=== PATIENT | male | born 1975 ===

== ENCOUNTER 2020-09-11 08:58 | Outpatient (CLI) | payer OTHER | END 2020-09-11 09:56 | disposition home or self-care (01) | LOC: OFIC 805 08:58 | PROVIDERS: ATTEND Otolaryngology Otology & Neurotology | DX: K21.9 Gastro-esophageal reflux disease without esophagitis (principal); J02.8 Acute pharyngitis due to other specified organisms; R22.1 Localized swelling, mass and lump, neck ==